=== PATIENT | female | born 1950 | race Caucasian/White ===

== ENCOUNTER 2017-03-15 05:29 | Inpatient (IN) | payer OTHER, BC ==
[~2017-03-15] VITALS: Ht 162.6 cm; Wt 107.7 kg
[~2017-03-15 05:29] MED LIST: DIOVAN HCT 31 TABLE1 PO; DIOVAN HCT 31 TABLET PO; ISTALOL5 ML BOTH EYES; LORTAB 5-325 M1 EACH PO; PRILOSEC10 MG PO; SIMVASTATIN40 MG PO; TENORMIN100 MG PO; VALTREX1000 MG PO
[2017-03-15 06:18] VITALS: BP 172/83
[2017-03-15 06:45] LABS: ANION GAP 9 MEQ/L (2-14); CHLORIDE 101 MEQ/L (99-109); GFR ESTIMATE (CALCULATED) > 59 mL/min/; GLUCOSE 118 mg/dL (70-99); POTASSIUM 4.7 MEQ/L (3.7-5.4); SAMPLE HEMOLYSIS CHECK 1; SAMPLE ICTERIC CHECK 0; SAMPLE LIPEMIA CHECK 0; SODIUM 138 MEQ/L (136-147); UREA NITROGEN (BUN) 13 mg/dL (9-23)
[2017-03-15 13:22] VITALS: BP 153/70
[2017-03-15 15:27] VITALS: BP 107/55
[2017-03-15 19:31] VITALS: BP 147/67
[2017-03-15 23:25] VITALS: BP 159/72
[2017-03-16 07:57] VITALS: BP 111/53
[2017-03-16 09:57] LABS: HEMATOCRIT 31.4 % (36.0-46.0); MCV 92.9 FL (83-99)
[2017-03-16 10:26] LABS: ANION GAP 8 MEQ/L (2-14); CHLORIDE 101 MEQ/L (99-109); GFR ESTIMATE (CALCULATED) > 59 mL/min/; GLUCOSE 114 mg/dL (70-99); POTASSIUM 4.4 MEQ/L (3.7-5.4); SAMPLE HEMOLYSIS CHECK 0; SAMPLE ICTERIC CHECK 0; SAMPLE LIPEMIA CHECK 0; SODIUM 136 MEQ/L (136-147); UREA NITROGEN (BUN) 8 mg/dL (9-23)
[2017-03-16 15:35] VITALS: BP 127/60
[2017-03-17 00:15] VITALS: BP 104/51
[2017-03-17 07:03] LABS: MCV 91.8 FL (83-99)
[2017-03-17] MEDS ORDERED: HYDROCODON-ACE1 EAC7 PO (08:04)
[2017-03-17 08:32] VITALS: BP 110/53
== END 2017-03-17 14:46 | disposition home or self-care (01) | DRG 493 ==
LOC: SDC 05:29 → 2SOUTH 11:25 → 3EAST 11:25 → ENRESERV 11:26 → SDC 12:48 → 3EAST 13:46 → SDC 14:15 → 3EAST 03-17 14:46
PROVIDERS: Orthopaedic Surgery; Physician Assistant
PROC: 0PSC06Z Reposition Right Humeral Head with Intramedullary Internal Fixation Device, Open Approach (ICD-10-PCS; principal; 2017-03-15)
DX: S42.231A 3-part fracture of surgical neck of right humerus, initial encounter for closed fracture (principal); S52.202A Unspecified fracture of shaft of left ulna, initial encounter for closed fracture; S52.92XA Unspecified fracture of left forearm, initial encounter for closed fracture; W01.0XXA Fall on same level from slipping, tripping and stumbling without subsequent striking against object, initial encounter; Y92.018 Other place in single-family (private) house as the place of occurrence of the external cause; I48.0 Paroxysmal atrial fibrillation; I27.20 Pulmonary hypertension, unspecified; I65.23 Occlusion and stenosis of bilateral carotid arteries; I10 Essential (primary) hypertension; E11.9 Type 2 diabetes mellitus without complications; E78.2 Mixed hyperlipidemia; H40.9 Unspecified glaucoma; K21.9 Gastro-esophageal reflux disease without esophagitis; E66.3 Overweight; Z68.41 Body mass index [BMI] 40.0-44.9, adult; Z82.5 Family history of asthma and other chronic lower respiratory diseases; Z83.3 Family history of diabetes mellitus; Z91.81 History of falling; Z96.641 Presence of right artificial hip joint
CPT/HCPCS: 73060; 76000; 80048; 85014; 85018; 94799; 97530 GO; C1713; C1821; J0330; J1170; J2250; J2405; J2710; J2795; J3010; J7030; J7050